=== PATIENT | female | born 1970 | race Two or more races ===

== ENCOUNTER 2021-08-17 05:31 | Emergency (ER) | payer OTHER ==
[~2021-08-17] VITALS: Ht 152.4 cm; Wt 47.6 kg
[2021-08-17] MEDS ORDERED: ARMOUR THYROID90 MG (05:50)
== END 2021-08-17 09:57 | disposition home or self-care (01) ==
LOC: ER 05:31
DX: S05.11XA Contusion of eyeball and orbital tissues, right eye, initial encounter (principal); W10.8XXA Fall (on) (from) other stairs and steps, initial encounter; Y93.E1 Activity, personal bathing and showering; Y92.012 Bathroom of single-family (private) house as the place of occurrence of the external cause; Y99.8 Other external cause status